=== PATIENT | male | born 1995 | race Caucasian/White ===

== ENCOUNTER 2018-09-11 19:38 | Emergency (ER) | payer OTHER, SELFPAY ==
[2018-09-11 19:40] VITALS: BP 143/78; PULSE 98; RESP 16; TEMP 36.9; O2SAT 96; BMI 20.2
--- NOTE | 2018-09-11 19:46 | ED.RN ---
CALLED JV FROM [facility] [facility] FOR THE [facility]. CARE TO COME TEST THIS PT
[2018-09-11] MEDS: Bupivacaine 0.5% PF 10 ML VIAL 5 ML INFILT (20:27)
[2018-09-11] MEDS: Cefazolin 1 GM/50 ML BAG IV (20:27)
[2018-09-11 20:32] LABS: Absolute Lymphocyte Count 2.23 X10^3/ul (0.83-4.51); Absolute Neutrophil Count 6.2 X10^3/uL (2.0-7.7); Basophil# 0.02 X10^3/uL; Basophil% 0.2 % (0-1); Eosinophil# 0.01 X10^3/uL; Eosinophils% 0.1 % (0-5); Hematocrit 41.3 % (40-54); Hemoglobin 14.3 g/dl (13.0-16.5); Lymphocyte # 2.23 X10^3/ul (4.0); Lymphocyte % 24.4 % (19-41); Mean Corp Hgb Conc 34.6 g/gl (32-36); Mean Corpuscular Hgb 32.6 pg (27.0-32.0); Mean Corpuscular Volume 94.1 fL (80-94); Mean Platelet Vol. 9.5 fl (6.2-12.0); Monocyte# 0.66 X10^3/uL; Monocyte% 7.2 % (0-10); Neutrophil # 6.18 X10^3/uL (2.7-7.7); Neutrophil % 67.8 % (47-70); Platelet Count 242 K/mm3 (150-450); RBC Distribution Width CV 12.1 % (11.6-14.6); RBC Distribution Width SD 41.3 fl (35.1-43.9); Red Blood Count 4.39 M/mm3 (4.6-6.2); White Blood Count 9.1 K/mm3 (4.4-11.0)
[2018-09-11 20:34] LABS: POSITIVE COUNT NO; POSITIVE DIFFERENTIAL NO; POSITIVE MORPHOLOGY NO
--- NOTE | 2018-09-11 20:35 | RAD_ITS ---
STUDY: X-RAY - RIGHT HAND, ATTENTION FIFTH FINGER REASON FOR EXAM: Male, 22 years old. Trauma TECHNIQUE: 3 view(s) of the finger were obtained. COMPARISON: None. FINDINGS: Markedly abnormal appearance of the tip of the fifth digit. Fractures of the fifth distal phalanx including a significantly displaced fracture of the tuft, and nondisplaced fracture of the base of the fifth distal phalanx. Soft tissues of the distal phalanx of the fifth digit. Soft tissues are displaced medially and the fracture tip of the distal phalanx is exposed. All these findings should be clinically evident. No other acute abnormalities. RAD/Finger(s) Min 2 Views IMPRESSION: Marked deformity of the distal fifth digit with fractures to the base of the fifth distal phalanx and markedly displaced open fracture through the tuft of the distal phalanx. Electronically Signed: Lauri Bowie MD at 20:59 EDT , Service support ,
--- NOTE | 2018-09-11 21:37 | ED.DCSUM_ITS ---
History of Present Illness Chief Complaint: Upper Extremity Injury Informant: Patient Onset: Today Narrative: Rcecg-[id number] male, crush injury right little finger at work. Stuck between conveyor belt. Tetanus within the last 5 years. No anticoagulation medicines. Deformity to the finger. No history of similar. Prior similar symptoms: No Past Medical History - Allergies and Home Meds Allergies/Adverse Reactions: Allergies No Known Allergies Allergy (Verified 09/11/18 19:42) Primary Care Physician: Care Physician,No Primary [Primary Care Provider] - Smoking Status: Never smoker Review of Systems General: Denies: Chills, Fever, Sweats Eyes: Denies: Visual changes - bilaterally, Diplopia ENT: Denies: Rhinorrhea, Sore throat Cardiovascular: Denies: Chest pain, Palpitations Respiratory: Denies: Dyspnea, Cough, Dyspnea on exertion Gastrointestinal: Denies: Abdominal pain, Nausea, Vomiting, Diarrhea, Melena, Hematochezia Genitourinary: Denies: Dysuria, Hematuria, Frequency Musculoskeletal: Reports: Arthralgias. Denies: Back pain, Extremity Pain Skin: Denies: Rash, Wounds Neurological: Reports: Parasthesia. Denies: Headache, Weakness, Numbness Physical Exam Vital Signs/Narrative: Vital Signs Temp Pulse Resp BP Pulse Ox 09/11/18 19:40 98.4 F 98 16 143/78 H 96 Inital Vital Signs reviewed: Yes General: Well nourished, Well developed, No Acute Distress Head: Normocephalic, Atraumatic Eyes: Perrl, EOMI ENT: Moist mucous membranes, No rhinorrhea Neck: Supple, Nontender Cardiovascular: Regular rate, Regular rhythm, No murmurs Respiratory: No distress, CTA bilaterally, Chest nontender Abdomen: Soft, Nontender, Nondistended, Normal bowel sounds Back: Nontender, Normal Inspection Extremities: - - Right upper extremity: Pinky exam notes partial amputation with deformities of the distal phalanx medially. Minimal bleeding. There was bone exposure. No joint involvement. 3 cm laceration involvement stellate with crest tissue. Skin: Normal color, No rash Neurological: Alert, Oriented x3, Cranial nerves II-XII grossly intact, Normal Strength, Normal Sensation Psychological: Normal affect, Normal Mood Diagnostic/Tx/Re-eval Right small finger: Fracture displacement distal phalanx with nondisplaced proximal distal phalanx fracture. - Medical Decision Making Patient exam concerns were open fracture, IVs placed given Ancef. CBC is normal. Digital block was performed after evaluation. X-ray confirms fracture displacement distal phalanx. Thoroughly cleansed and wash in Betadine mix with water. There was bone exposure initially, partial amputation distal soft tissue. This was replaced over the bone, sutured in place. There was no nailbed involvement, nail root was pushed back in. Discussed with Dr. Barnett at 2127, will place the patient with doxycycline, short prescription for [place]. Splinting and dressing placed by nursing. He will be seen in the office tomorrow. Procedures - Lacerations No standard instances Length: 36 in Shape: Stellate Prep: Sterile Conditions, Betadine Laceration repair: Digital block Irrigated (ml): 999 Number of Sutures/Ann: 5 Suture Information: Simple, 5-0 ED Disposition - Plan for ED Patient: Disposition: Home or Assisted Living Diagnosis: Open fracture of phalanx of right little finger Instructions: ED Fx Finger Open Prescriptions: Hydrocodone Bitart/Apap 5-325 [[place] 5MG-325MG] 1 tablet PO Q6H PRN PRN 3 Days #12 tablet PRN Reason: Pain Doxycycline 100 mg PO BID #20 capsule Referrals: Care Physician,No Primary [Primary Care Provider] - Layo Barnett MD [STAFF PHYSICIAN] - 1 Day
[2018-09-11] MEDS: HYDROcodone Bitartrate/Apap 5/325 Tablet PO (21:46)
== END 2018-09-11 21:51 | disposition home or self-care (01) ==
PROVIDERS: Emergency Provider Emergency Medicine
DX: S62.636B Displaced fracture of distal phalanx of right little finger, initial encounter for open fracture (principal); W23.1XXA Caught, crushed, jammed, or pinched between stationary objects, initial encounter; Y93.9 Activity, unspecified; Y92.9 Unspecified place or not applicable; Y99.0 Civilian activity done for income or pay
CPT/HCPCS: 12001; 73140; 85025; 96365; 99285; J7050; A4216

== ENCOUNTER 2018-09-13 07:09 | Day surgery (SDC) | payer OTHER, SELFPAY ==
[2018-09-12 15:20] VITALS: BMI 20.2
[2018-09-13 07:58] VITALS: BP 111/71; PULSE 63; RESP 18; TEMP 37.3; O2SAT 99; BMI 20.8
[2018-09-13] MEDS: Vancomycin IV 1,000 MG/200 ML BAG 200 MG IV (09:12)
--- NOTE | 2018-09-13 09:17 | HP.PCM_ITS ---
History and Physical Date of Admission: 09/13/18 HISTORY OF PRESENT ILLNESS 22 year old man presents with a crush injury right small finger that he sustained at work on 09/11/18 when his finger got stuck in a conveyor belt. He went to the ED for evaluation. X-ray showed a displaced open fracture right small finger through the tuft of the distal phalanx and a nondisplaced fracture of the base. There were lacerations on the dorsum of the finger near the eponychial fold and on the volar side of the finger at the DIP joint crease. The wounds were cleansed in the ED and suture repaired. There was enough soft tissue to cover the exposed bone. He has an associated subungual hematoma and nail bed injury. In the ED, the patient was able to flex and extend the finger at the DIP joint. He was given Ancef IV and was sent home on Doxycycline. The finger was splinted. Patient is right hand dominant. He presents today for further evaluation and treatment. PAST MEDICAL HISTORY Ulcer PAST SURGICAL HISTORY None. ALLERGIES No Known Allergies MEDICATIONS Doxycycline Hydrocodone Bitart/Apap 5-325 [[place] 5MG-325MG] FAMILY HISTORY Other - Arthritis, Cervical cancer, History of blood clots SOCIAL HISTORY Smoking Status: Light Smoker (<10/day) alcohol intake: current details: BEER ONCE IN A WHILE substance use type: does not use REVIEW OF SYSTEMS General - Denies fever, fatigue, and weight loss. Eyes - Denies cataracts and glaucoma. ENT - Denies nasal congestion and sore throat. Endocrine - Denies excessive thirst and urination. Skin - Denies suspicious lesions and skin cancer. Musculoskeletal - Denies joint pain, joint stiffness, weakness of muscles and joints, and arthritis. Has back pain. Has an open displaced fracture distal phalanx right small finger with subungual hematoma and nail bed injury. Neuro - Denies headaches. Cardiovascular - Denies chest pain, fatigue, and shortness of breath with exertion. Psych - Denies anxiety and depression. Respiratory - Denies chronic cough and shortness of breath. Gastrointestinal - Denies nausea, vomiting, diarrhea, and constipation. Hematologic - Denies abnormal bruising and bleeding. Genitourinary - Denies hematuria and urinary frequency. PHYSICAL EXAMINATION General - Alert and Oriented HEENT - PERRL. EOMI. Throat is clear. Neck - Supple and nontender. No cervical adenopathy. Lungs - Clear to auscultation. Heart - Regular rate and rhythm. Abdomen - Soft and nondistended. Extremities - FROM except for right small finger where he sustained a crush injury and associated open displaced fracture distal phalanx and nail bed inj ury. There is a subungual hematoma present. There is a laceration that is suture repaired on the dorsum of the right small finger near the eponychial fold. There is a laceration that is suture repaired on the volar side of the right small finger at the DIP joint crease. He is able to flex and extend his finger with some limitation secondary to pain and swelling. No axillary adenopathy. Radial pulses are palpable. Other fingers are warm with good capillary refill. Hard to assess capillary refill right small finger because of presence of subungual hematoma. The finger feels warm. Tip of small finger has decreased sensation to pin prick. Neuro - CN II-XII grossly intact. Psych - Normal mood and affect. ASSESSMENT 1. Open displaced fracture distal tuft of distal phalanx right small finger. 2. Subungual hematoma right small finger. 3. Nail bed injury right small finger. 4. Crush injury right small finger. 5. Possible tendon injury. PLAN Continue the tip splint to help minimize pain when the finger tip is bumped. Continue Doxycycline since there is increased risk of osteomyelitis. Recommend operative intervention to drain the subungual hematoma as an undrained hematoma increases risk of infection. Will proceed with a partial ostectomy to evaluate for osteomyelitis. Soft tissue and bone will be sent to Pathology for analysis and to Microbiology for culture. A positive culture may necessitate antibiotic modification. Will evaluate the nail bed injury and repair it. If there is too much damage to the nail bed then a nail bed graft from another finger or a toe could be done. If greater than 50% of the nail bed is damaged, a better option would be excision of the nail bed complex and provide soft tissue coverage over the exposed bone with a two stage cross finger flap and skin graft. The second stage would occur in 3 weeks and entail division and inset of the flap. The donor site may need to be skin grafted. Anticipate some stiffness after the division of the flap and would set him up with OT for range of motion exercises, strengthening, and edema management. He is able to flex and extend his finger at the DIP joint. However due to the placement of the lacerations on the dorsum of the finger near the eponychial fold (zone 1) and the volar surface of the finger at the DIP joint crease (zone 1), at the time of the surgery, will evaluate both the flexor and extensor tendons for injury. If injured, they will be repaired. The surgery has been approved by [facility]. It is scheduled for tomorrow 09/13/18. Surgery will be done under general anesthesia as an outpatient with a possible surgical observation overnight stay in the hospital. Followup after the surgery. He will need pain medication and antibiotics after surgery. 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 Anticipate these restrictions until October 08, 2018 (tentative). Patient was informed of the risks and complications of the procedure including alternatives to surgery. These were discussed with the patient personally. Patient voices understanding and wishes to proceed. Some of the risks and complications were included in a form from the [employer]. Some of the risks and complications that were discussed included but were not inclusive of failure to diagnose including symptom relief, pain, infection, numbness, stiffness, loss of digit, RSD (CRPS), need for further surgery, contracture, and wound healing problems.
--- NOTE | 2018-09-13 10:20 | TISS_PTH ---
PATIENT: DIANA NEWSOME LOC: [facility] U#:[id number] AGE/SX: 22/M ROOM: RE09/13/[address]: Dr. Layo Barnett MD : 1995 BED: DIS: 09/13/2018 SPEC #: [id number] RECD: 09/13/18 15:17 STATUS: [place]YS[place] REAnoop #: [id number] TAMARA: 09/13/18 10:[address]: Layo Barnett DEPT: SURGICAL PATHOLOGY RECD BY: Robert Parra ENTERED: 09/14/18 08:57 SP TYPE: Tissue Bx OTHR DR: No Primary Care Phys Tissues: A - TISSUE SURGICALLY REMOVED B - TISSUE SURGICALLY REMOVED Procedures: Surgery Specimen Level III HEADER OPERATION: Small finger, drainage, partial ostectomy, distal phalanges PRE-OP DIAGNOSIS: Open displaced facture distal tuft of distal phalanx right small finger; subungual hematoma right small finger; nailbed injury, crush injury small finger; possible tendon injury TISSUE SUBMITTED: A. Crush injury with open fracture right small finger, B. Soft tissue small right finger MICROSCOPIC DIAGNOSIS A. Crush injury with open fracture right small finger: Fragments of fibroconnective tissue, fibroadipose tissue and bone, clinically crush injury. B. Soft tissue small right finger: Fragments of superficial squamous epithelium, dense fibroconnective tissue and bone, clinically crush injury. JAZLYN:tyrell 09/17/18 MICROSCOPIC DESCRIPTION Slides are reviewed. GROSS DESCRIPTION A - Received in fixative is one container labeled with the patient's name and designated crush injury with open fracture right small finger. The specimen consists of three variable sized pieces of hemorrhagic soft tissue that in aggregate measure 0.8 x 0.5 x 0.2 cm. The specimen is totally submitted in one cassette. B - Received in fixative is one container labeled with the patient's name and designated soft tissue small right finger. The specimen consists of multiple irregular fragments of garzon hemorrhagic soft tissue that in aggregate measure 1 x 0.5 x 0.2 cm. The specimen is totally submitted in one cassette. / JAZLYN:tyrell 09/14/18 TC:5 CPT: 93976 x2
[2018-09-13] MEDS: Mupirocin Ointment 22gm Tube 1 APPLIC (12:08)
--- NOTE | 2018-09-13 12:25 | OP.PCM_ITS ---
Report of Operation Date of Procedure: 09/13/18 Pre-Operative Diagnosis: 1. Open displaced fracture distal tuft of distal phalanx right small finger. 2. Subungual hematoma right small finger. 3. Nail bed injury right small finger. 4. Crush injury right small finger. 5. Possible tendon injury. Post-Operative Diagnosis: 1. Open displaced fracture distal tuft of distal phalanx right small finger. 2. Subungual hematoma right small finger. 3. Nail bed injury right small finger. 4. Crush injury right small finger. Surgery/Procedure Performed:: 1. Drainage subungual hematoma right small finger. 2. Partial ostectomy distal phalanx for osteomyelitis. 3. Complex repair stellate nail bed injury. Description of Surgical Findings:: 22 year old man presents with a crush injury right small finger that he sustained at work on 09/11/18 when his finger got stuck in a conveyor belt. He went to the ED for evaluation. X-ray showed a displaced open fracture right small finger through the tuft of the distal phalanx and a nondisplaced fracture of the base. There were lacerations on the dorsum of the finger near the eponychial fold and on the volar side of the finger at the DIP joint crease. The wounds were cleansed in the ED and suture repaired. There was enough soft tissue to cover the exposed bone. He has an associated subungual hematoma and nail bed injury. In the ED, the patient was able to flex and extend the finger at the DIP joint. He was given Ancef IV and was sent home on Doxycycline. The finger was splinted. Patient is right hand dominant. Patient was informed of the risks and complications of the procedure including alternatives to surgery. These were discussed with the patient personally. Patient voices understanding and wishes to proceed. Some of the risks and complications that were discussed included but were not inclusive of failure to diagnose including symptom relief, pain, infection, numbness, stiffness, loss of digit, RSD (CRPS), need for further surgery, contracture, and wound healing problems. Total tourniquet time - 74 minutes. enterprise application analyst: None Type of Anesthesia:: General Specimen's removed: 1. Right small finger tip soft tissue to Pathology and Microbiology. 2. Right small finger tip bone to Pathology and Microbiology. Drains: None. Estimated Blood Loss (mL): 2 ml. Description of Procedure: Patient was taken to OR in supine position and was placed under general anesthesia. The right upper extremity was prepped and draped in the usual fashion. A tourniquet was placed. SCD's were placed for DVT prophylaxis. Perioperative antibiotics were given intravenously. The right upper extremity was elevated and was wrapped with an Esmarch bandage as the tourniquet was elevated to 250 mmHg. Using xylocaine with epinephrine, a digital metacarpal block at the base of the right small finger was infiltrated for postop pain relief. Under loupe magnification, I removed the sutures on the dorsum of the finger and the volar side of the finger. The distal tip skin flap was floppy with blood supply based ulnarly. I removed the nail plate with an elevator. There was a congealed hematoma present that extended through the stellate nail bed injury and involved the distal phalanx. The hematoma was drained and the congealed portion of the hematoma was excised and debrided. Using an elevator, I elevated the remaining nail bed off the distal phalanx. Some loose pieces of bone were excised and debrided. Using a rongeur, I excised the distal portion of the distal phalanx to evaluate for osteomyelitis. A rasp was used to smooth out the bony edge. The stellate nail bed injury was swollen with presence of ex udate which was excised and debrided. From the pressure of the subungual hematoma, there was some loss of nail bed and the bone was exposed. I shortened the nail bed a little bit to minimize a floppy finger tip. I wanted the soft tissue to be close to the bone to minimize this floppiness. By shortening the nail bed a little bit, I was able to repair the nail bed without having to resort to a nail bed graft. This complex nail bed repair was done with 5-0 Vicryl simple interrupted sutures. Since I was able to repair the nail bed, a cross finger flap will not be necessary at this time. I visualized the base of the distal phalanx on the volar side and the insertion of the flexor tendon was intact. For the extensor tendon, I extended the dorsal laceration proximally on the radial side and dissected down to the extensor tendon. The insertion of the extensor tendon was intact. The wound was irrigated with saline. Some fat necrosis that was present from the crush injury was excised and debrided. I then closed the skin lacerations with 5-0 Nylon simple interrupted sutures. I cleaned off any residual blood and debris from the nail plate and placed the nail plate back on the finger and underneath the eponychial fold. The nail plate was secured with 5-0 Nylon simple interrupted sutures. Half the soft tissue and half the bone was sent to Pathology for analysis to rule out car cinoma and to evaluate for osteomyelitis. Half the soft tissue and half the bone was sent to Microbiology for culture. A positive culture will necessitate antibiotic therapy. The tourniquet was released after 74 minutes. Hemostasis was obtained with gentle pressure and elevation. Antibiotic ointment was applied to the finger tip followed by Xeroform gauze and 2x2 gauze followed by 2 inch Dona wrap. A new alumafoam splint will be given to the patient to help with protecting the finger tip when bumped. With a bulky surgical dressing at present, he won't need the splint until after the first dressing change in the office. Patient tolerated the procedure well and was sent to PACU in satisfactory condition. Patient will be sent home on antibiotics and pain medication. He will keep his right hand elevated during the initial postop period. He will wear a plastic bag over his right hand when showering. Patient will followup in a week for a wound check and for discussion of the pathology report and for discussion of the Microbiology report. Will remove the sutures in 2-3 weeks. Depending on his degree of stiffness postop, may need OT for range of motion exercises, strengthening, and edema management. Will decide at his first postop visit about when to return to work with restrictions such as one handed work, office work, and no machines. Grafts/Implants Used: None. - Complications None. - Admit VTE Documentation VTE Present on Admission: No VTE Mechan Device Prophylaxis: SCD's VTE Pharm Prophylaxis ordered?: No Code Visit Surgery Charges CPT - 61524 ICD-10 - S62.606B, S60.151A, S69.91xA, S67.196A 11089 S62.606B, S60.151A, S69.91xA, S67.196A 61836 S62.606B, S69.91xA, S60.151A, S67.196A
[2018-09-13 12:28] VITALS: BP 110/70; BP 111/71; PULSE 74; RESP 14; TEMP 36.6; O2SAT 100
--- NOTE | 2018-09-13 12:30 | PCM.DC ---
You will use the following diet at home:: No restrictions Discharge Activity: May not drive while taking narcotic pain medications., May Shower - wear plastic bag over right hand when showering., - - keep right hand elevated. no lifting with right hand. May shower in (days): 1 - wear plastic bag over right hand when showering. May resume sexual activity in: No Restrictions Weight Bearing Status: Weight bearing as tolerated Lifting Restrictions: no lifting with right hand. Keep extremity elevated above heart level: Right Arm Call your doctor if your incision/area has: Continuous Slow Oozing, Sudden Increased Bleeding, Increased Pain/ Swelling, Increased Redness, Foul Smelling Discharge, Swelling at the incision site Call your doctor if you observe: Fever of 101 or Higher, Coldness, Increased Pain, Shortness of breath, Chest pain, Calf discomfort, Uncontrolled pain Suture Line Care: - - after dressing removed in the office, apply antibiotic ointment to suture line daily. Change Dressing in (Days):: 7 - will change dressing in the office. Cleanse incision/area with: - - wear plastic bag over right hand when showering. Allergies/Adverse Reactions: Allergies No Known Allergies Allergy (Verified 09/12/18 15:20) Medications to take at Discharge Hydrocodone Bitart/Apap 5-325 [[place] 5/325] 1 tab PO Q6H PRN PRN 3 Days #12 tab 09/11/18 Doxycycline 100 mg PO BID #60 cap 09/13/18 Oxycodone HCl/Acetaminophen [Percocet 5/325] 1 - 2 tab PO 4X/DAY PRN PRN 7 Days #50 tab 09/13/18 The following prescriptions were given: Oxycodone HCl/Acetaminophen [Percocet 5/325] 1 - 2 tab PO 4X/DAY PRN PRN 7 Days #50 tab PRN Reason: Pain Doxycycline 100 mg PO BID #60 cap Primary Care Physician: Care Physician,No Primary [Primary Care Provider] - Test Results: Test results from this visit will be discussed in further detail at your follow-up appointment, if applicable. Please Follow Up With: Layo Barnett MD When: one week. call [phone] for appt. Proposed Discharge Date: 09/13/18
--- NOTE | 2018-09-13 12:33 | DCINST_ITS ---
You will use the following diet at home:: No restrictions Discharge Activity: May not drive while taking narcotic pain medications., May Shower - wear plastic bag over right hand when showering., - - keep right hand elevated. no lifting with right hand. May shower in (days): 1 - wear plastic bag over right hand when showering. May resume sexual activity in: No Restrictions Weight Bearing Status: Weight bearing as tolerated Lifting Restrictions: no lifting with right hand. Keep extremity elevated above heart level: Right Arm Call your doctor if your incision/area has: Continuous Slow Oozing, Sudden Increased Bleeding, Increased Pain/ Swelling, Increased Redness, Foul Smelling Discharge, Swelling at the incision site Call your doctor if you observe: Fever of 101 or Higher, Coldness, Increased Pain, Shortness of breath, Chest pain, Calf discomfort, Uncontrolled pain Suture Line Care: - - after dressing removed in the office, apply antibiotic ointment to suture line daily. Change Dressing in (Days):: 7 - will change dressing in the office. Cleanse incision/area with: - - wear plastic bag over right hand when showering. Allergies/Adverse Reactions: Allergies No Known Allergies Allergy (Verified 09/12/18 15:20) Medications to take at Discharge Hydrocodone Bitart/Apap 5-325 [[place] 5/325] 1 tab PO Q6H PRN PRN 3 Days #12 tab 09/11/18 Doxycycline 100 mg PO BID #60 cap 09/13/18 Oxycodone HCl/Acetaminophen [Percocet 5/325] 1 - 2 tab PO 4X/DAY PRN PRN 7 Days #50 tab 09/13/18 The following prescriptions were given: Oxycodone HCl/Acetaminophen [Percocet 5/325] 1 - 2 tab PO 4X/DAY PRN PRN 7 Days #50 tab PRN Reason: Pain Doxycycline 100 mg PO BID #60 cap Primary Care Physician: Care Physician,No Primary [Primary Care Provider] - Test Results: Test results from this visit will be discussed in further detail at your follow- up appointment, if applicable. Please Follow Up With: Layo Barnett MD When: one week. call [phone] for appt. Proposed Discharge Date: 09/13/18
[2018-09-13 12:45] VITALS: BP 101/54; BP 111/71; PULSE 81; RESP 16; O2SAT 99
[2018-09-13 13:03] VITALS: BP 106/61; BP 111/71; PULSE 80; RESP 18; TEMP 36.6; O2SAT 100
[2018-09-13 13:30] VITALS: BP 111/71
== END 2018-09-13 13:41 | disposition home or self-care (01) ==
LOC: SDC 07:12 → AC 08:54
PROVIDERS: Referring Provider Surgery; Visit Provider Surgery
PROC: (CPT 15574; principal; 2018-09-13 10:05)
DX: S67.196A Crushing injury of right little finger, initial encounter (principal); S62.636B Displaced fracture of distal phalanx of right little finger, initial encounter for open fracture; S60.151A Contusion of right little finger with damage to nail, initial encounter; W23.0XXA Caught, crushed, jammed, or pinched between moving objects, initial encounter; Y93.9 Activity, unspecified; Y92.9 Unspecified place or not applicable; Y99.0 Civilian activity done for income or pay; F17.200 Nicotine dependence, unspecified, uncomplicated
CPT/HCPCS: 00400; 11740; 11760; 26236; 87070; 87075; 87077; 87102; 87186; 87205; 87206; 88304; 88305; J7120; A4216; J2405

== ENCOUNTER 2018-10-02 12:05 | Day surgery (SDC) | payer OTHER, SELFPAY ==
[2018-10-01 15:12] VITALS: BMI 20.8
--- NOTE | 2018-10-02 09:44 | PCM.HP.BLA ---
History and Physical Date of Admission: 10/02/18 Date of Admission: 09/13/18 HISTORY OF PRESENT ILLNESS 22 year old man presents with a crush injury right small finger that he sustained at work on 09/11/18 when his finger got stuck in a conveyor belt. He went to the ED for evaluation. X-ray showed a displaced open fracture right small finger through the tuft of the distal phalanx and a nondisplaced fracture of the base. There were lacerations on the dorsum of the finger near the eponychial fold and on the volar side of the finger at the DIP joint crease. The wounds were cleansed in the ED and suture repaired. There was enough soft tissue to cover the exposed bone. He has an associated subungual hematoma and nail bed injury. In the ED, the patient was able to flex and extend the finger at the DIP joint. He was given Ancef IV and was sent home on Doxycycline. The finger was splinted. Patient is right hand dominant. He presents today for further evaluation and treatment. PAST MEDICAL HISTORY Ulcer PAST SURGICAL HISTORY None. ALLERGIES No Known Allergies MEDICATIONS Doxycycline Hydrocodone Bitart/Apap 5-325 [[place] 5MG-325MG] FAMILY HISTORY Other - Arthritis, Cervical cancer, History of blood clots SOCIAL HISTORY Smoking Status: Light Smoker (<10/day) alcohol intake: current details: BEER ONCE IN A WHILE substance use type: does not use REVIEW OF SYSTEMS General - Denies fever, fatigue, and weight loss. Eyes - Denies cataracts and glaucoma. ENT - Denies nasal congestion and sore throat. Endocrine - Denies excessive thirst and urination. Skin - Denies suspicious lesions and skin cancer. Musculoskeletal - Denies joint pain, joint stiffness, weakness of muscles and joints, and arthritis. Has back pain. Has an open displaced fracture distal phalanx right small finger with subungual hematoma and nail bed injury. Neuro - Denies headaches. Cardiovascular - Denies chest pain, fatigue, and shortness of breath with exertion. Psych - Denies anxiety and depression. Respiratory - Denies chronic cough and shortness of breath. Gastrointestinal - Denies nausea, vomiting, diarrhea, and constipation. Hematologic - Denies abnormal bruising and bleeding. Genitourinary - Denies hematuria and urinary frequency. PHYSICAL EXAMINATION General - Alert and Oriented HEENT - PERRL. EOMI. Throat is clear. Neck - Supple and nontender. No cervical adenopathy. Lungs - Clear to auscultation. Heart - Regular rate and rhythm. Abdomen - Soft and nondistended. Extremities - FROM except for right small finger where he sustained a crush injury and associated open displaced fracture distal phalanx and nail bed injury. There is a subungual hematoma present. There is a laceration that is suture repaired on the dorsum of the right small finger near the eponychial fold. There is a laceration that is suture repaired on the volar side of the right small finger at the DIP joint crease. He is able to flex and extend his finger with some limitation secondary to pain and swelling. No axillary adenopathy. Radial pulses are palpable. Other fingers are warm with good capillary refill. Hard to assess capillary refill right small finger because of presence of subungual hematoma. The finger feels warm. Tip of small finger has decreased sensation to pin prick. Neuro - CN II-XII grossly intact. Psych - Normal mood and affect. ASSESSMENT 1. Open displaced fracture distal tuft of distal phalanx right small finger. 2. Subungual hematoma right small finger. 3. Nail bed injury right small finger. 4. Crush injury right small finger. 5. Possible tendon injury. PLAN Continue the tip splint to help minimize pain when the finger tip is bumped. Continue Doxycycline since there is increased risk of osteomyelitis. Recommend operative intervention to drain the subungual hematoma as an undrained hematoma increases risk of infection. Will proceed with a partial ostectomy to evaluate for osteomyelitis. Soft tissue and bone will be sent to Pathology for analysis and to Microbiology for culture. A positive culture may necessitate antibiotic modification. Will evaluate the nail bed injury and repair it. If there is too much damage to the nail bed then a nail bed graft from another finger or a toe could be done. If greater than 50% of the nail bed is damaged, a better option would be excision of the nail bed complex and provide soft tissue coverage over the exposed bone with a two stage cross finger flap and skin graft. The second stage would occur in 3 weeks and entail division and inset of the flap. The donor site may need to be skin grafted. Anticipate some stiffness after the division of the flap and would set him up with OT for range of motion exercises, strengthening, and edema management. He is able to flex and extend his finger at the DIP joint. However due to the placement of the lacerations on the dorsum of the finger near the eponychial fold (zone 1) and the volar surface of the finger at the DIP joint crease (zone 1), at the time of the surgery, will evaluate both the flexor and extensor tendons for injury. If injured, they will be repaired. The surgery has been approved by [facility]. It is scheduled for tomorrow 09/13/18. Surgery will be done under general anesthesia as an outpatient with a possible surgical observation overnight stay in the hospital. Followup after the surgery. He will need pain medication and antibiotics after surgery. 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 Anticipate these restrictions until October 08, 2018 (tentative). Patient was informed of the risks and complications of the procedure including alternatives to surgery. These were discussed with the patient personally. Patient voices understanding and wishes to proceed. Some of the risks and complications were included in a form from the [employer]. Some of the risks and complications that were discussed included but were not inclusive of failure to diagnose including symptom relief, pain, infection, numbness, stiffness, loss of digit, RSD (CRPS), need for further surgery, contracture, and wound healing problems.
[2018-10-02 12:47] VITALS: BP 113/62; PULSE 79; RESP 16; TEMP 36.8; O2SAT 98
[2018-10-02] MEDS: Vancomycin IV 1,000 MG/200 ML BAG 200 MG IV (13:30)
--- NOTE | 2018-10-02 14:30 | AMP_PTH ---
PATIENT: DIANA NEWSOME [place] [facility] [id number] AGE/SX: 23/M ROOM: RE10/02/[address]: Dr. Layo Barnett MD : 1995 BED: DIS: 10/02/2018 SPEC #: [id number] RECD: 10/02/18 16:45 STATUS: BRYSON REAnoop #: [id number] TAMARA: 10/02/18 14:[address]: Layo Barnett DEPT: SURGICAL PATHOLOGY RECD BY: Robert Parra ENTERED: 10/03/18 10:01 SP TYPE: Amputation OTHR DR: Nereida Primary Care Phys Tissues: A - Finger, NOS B - Bone of hand, NOS Procedures: Decalcification bone/plaque Surgery Specimen Level IV HEADER OPERATION: Revision amputation small finger on right hand PRE-OP DIAGNOSIS: Open displaced fracture distal tuft of distal phalanx right small finger; subungual hematoma right small finger; nailbed injury right small finger; crush injury right small finger; possible tendon injury TISSUE SUBMITTED: A. Amputation stump right small finger soft tissue, B. Amputation stump right small finger bone MICROSCOPIC DIAGNOSIS A. Right small finger, amputation: Skin and soft tissue with ulceration and associated acute inflammation and granulation. Underlying bone with acute osteomyelitis. B. Amputation stump right small finger bone, biopsy: Bone with reparative and reactive change. No evidence of osteomyelitis. AM:tyrell 10/10/18 MICROSCOPIC DESCRIPTION Slides are reviewed. GROSS DESCRIPTION A - Received in fixative is one container labeled with the patient's name and designated amputation stump right small finger soft tissue. The specimen consists of grayish-white amputated stump measuring 2.8 x 2.2 x 1.2 cm. The skin shows focal superficial sloughing. A portion of the possible nail tissue is also identified. Multiple black sutures are present. The specimen is serially sectioned and submitted in toto in three cassettes after decalcification. B - Received in fixative is one container labeled with the patient's name and designated amputation stump right small finger bone. The specimen consists of a grayish-white fragment of bone measuring 0.8 x 0.4 x 0.3 cm. The specimen is totally submitted in one cassette after decalcification. FA:tyrell 10/04/18 TC:2 CPT: 12442 x2, 85405 x2
[2018-10-02] MEDS: Mupirocin Ointment 22gm Tube 1 APPLIC (16:35)
--- NOTE | 2018-10-02 16:41 | OP.PCM_ITS ---
Report of Operation Date of Procedure: 10/02/18 Pre-Operative Diagnosis: 1. Open displaced fracture distal tuft of distal phalanx right small finger. 2. Subungual hematoma right small finger. 3. Nail bed injury right small finger. 4. Crush injury right small finger with compromised tip. Post-Operative Diagnosis: Same. Surgery/Procedure Performed:: Revision amputation right small finger thorugh middle phalanx. Description of Surgical Findings:: The patient had recent surgery 09/14/18 where he underwent debridement of open fracture distal phalanx and repair of nail bed injury and drainage of subungual hematoma after sustaining a crush injury at work. Postoperatively he developed compromise of his right small finger tip with nonviable tissue and increasing pain. Operative cultures showed Enterobacter and he was placed on Levaquin. Pathology showed crushing changes and no osteomyelitis. He presents today for revision of his crush injury amputation right small finger tip. Patient was informed of the risks and complications of the procedure including alternatives to surgery. These were discussed with the patient personally. Patient voices understanding and wishes to proceed. Some of the risks and complications were included in a form from the [employer]. Some of the risks and complications that were discussed included but were not inclusive of failure to diagnose including symptom relief, pain, infection, numbness, stiffness, loss of digit, RSD (CRPS), need for further surgery, contracture, and wound healing problems. Encouraged patient to stop smoking as it may have deleterious effects on wound healing. Surgery will be under general anesthesia on an outpatient basis under tourniquet control. Total tourniquet time - 26 minutes. nuclear spectroscopist: None Type of Anesthesia:: General Specimen's removed: 1. Amputation stump soft tissue right small finger to Pathology and Microbiology. 2. Amputation stump bone right small finger to Pathology and Microbiology. Drains: None. Estimated Blood Loss (mL): 2 ml. Description of Procedure: Patient was taken to OR in supine position and was placed under general anesthesia. The right hand was prepped and draped in the usual fashion. SCD's were placed for DVT prophylaxis. Perioperative antibiotics were given intravenously. Using xylocaine with epinephrine, the digital metacarpal block was infiltrated for postoperative pain relief. After waiting 5 minutes for the anesthetic to take effect, a digital tourniquet was applied. Incisions were made dorsally and volarly as I created dorsal and volar skin flaps at the level of the middle phalanx. Markings had been made just proximal to the crush injury damaged tissue distally. Dissection was carried down through the tendons to the bone. An elevator was used to separate the soft tissue from the bone. An oscillating saw was used to revise the amputation through the middle phalanx. A rasp was used to smooth out the bony edges. Half the bone and half the soft tissue was sent to Pathology for analysis to rule out carcinoma and to evaluate for osteomyelitis. Half the bone and half the soft tissue was sent to Microbiology for culture. A positive culture may necessitate antibiotic modification. I then dissected out the radial and ulnar digital nerves and placed them on stretch and excised. This allowed proximal retraction of the digital nerves to minimize neuroma formation. The wound was irrigated with saline. The amputation stump was then closed in a layered fashion with 5-0 Monocryl interrupted sutures for the deep dermis and subcutaneous tissue. The skin was approximated with 5-0 Nylon simple interrupted sutures. Prior to wound closure, the tourniquet was released after 26 minutes. No vascular compromise was noted on the skin. Hemostasis was obtained with electrocautery. Antibiotic ointment was applied to the suture line followed by Xeroform gauze followed by 2x2 gauze and 2 inch Dona wrap. Patient tolerated the procedure well and was sent to PACU in satisfactory condition. Patient will be sent home on antibiotics and pain medication. Patient will followup in a week for a wound check and for discussion of the pathology report and for discussion of the microbiology report. A positive culture may necessitate antibiotic modification. The sutures will be removed in 2-3 weeks. Grafts/Implants Used: None. - Complications None. - Admit VTE Documentation VTE Present on Admission: No VTE Mechan Device Prophylaxis: SCD's VTE Pharm Prophylaxis ordered?: No Code Visit Surgery Charges CPT - 91129 ICD-10 - S62.636B, S60.151A, S67.196A, S69.91xA, F17.200
[2018-10-02 16:46] VITALS: BP 113/62; BP 97/75; PULSE 89; RESP 18; TEMP 37.1; O2SAT 100
--- NOTE | 2018-10-02 16:50 | DCINST_ITS ---
You will use the following diet at home:: No restrictions Discharge Activity: May not drive while taking narcotic pain medications., May Shower - wear plastic bag over right hand when showering., - - elevate right hand. no heavy lifting. May shower in (days): 1 - wear plastic bag over right hand when showering. May resume sexual activity in: No Restrictions Weight Bearing Status: Weight bearing as tolerated Lifting Restrictions: 10 lbs. Keep extremity elevated above heart level: Right Arm Call your doctor if your incision/area has: Continuous Slow Oozing, Sudden Increased Bleeding, Increased Pain/ Swelling, Increased Redness, Foul Smelling Discharge, Swelling at the incision site Call your doctor if you observe: Fever of 101 or Higher, Coldness, Increased Pain, Shortness of breath, Chest pain, Calf discomfort, Uncontrolled pain Suture Line Care: - - after the dressing removed, apply antibiotic ointment to suture line daily. Cleanse incision/area with: - - wear plastic bag over right hand when showering. Allergies/Adverse Reactions: Allergies No Known Allergies Allergy (Verified 10/01/18 15:12) Medications to take at Discharge Oxycodone HCl/Acetaminophen [Percocet 5/325] 1 tab PO Q4H PRN PRN 7 Days #40 tab 10/02/18 levoFLOXacin tablet [Levaquin tablet] 750 mg PO DAILY #14 tab 10/02/18 The following prescriptions were given: levoFLOXacin tablet [Levaquin tablet] 750 mg PO DAILY #14 tab Prescription Printed Oxycodone HCl/Acetaminophen [Percocet 5/325] 1 tab PO Q4H PRN PRN 7 Days #40 tab PRN Reason: Pain Prescription Printed Primary Care Physician: Care Physician,No Primary [Primary Care Provider] - Test Results: Test results from this visit will be discussed in further detail at your follow- up appointment, if applicable. Please Follow Up With: Lyao Barnett MD When: one week. call [phone] for appt. Proposed Discharge Date: 10/02/18
[2018-10-02 17:00] VITALS: BP 104/65; BP 113/62; PULSE 85; RESP 16; O2SAT 97
[2018-10-02 17:10] VITALS: BP 100/56; BP 113/62; PULSE 94; RESP 18; TEMP 36.8; O2SAT 97
[2018-10-02] MEDS: Acetaminophen 325 MG Tablet PO (17:29)
[2018-10-02] MEDS: oxyCODONE 5 MG Tablet PO (17:29)
[2018-10-02 17:40] VITALS: BP 113/62; BP 118/68; PULSE 83; RESP 16; TEMP 37.2; O2SAT 99
== END 2018-10-02 17:50 | disposition home or self-care (01) ==
LOC: SDC 12:07 → AC 12:07
PROVIDERS: Referring Provider Surgery; Visit Provider Surgery
PROC: (CPT 26951; principal; 2018-10-02 14:15)
DX: S67.196A Crushing injury of right little finger, initial encounter (principal); S62.636B Displaced fracture of distal phalanx of right little finger, initial encounter for open fracture; S60.151A Contusion of right little finger with damage to nail, initial encounter; W23.0XXA Caught, crushed, jammed, or pinched between moving objects, initial encounter; Y93.9 Activity, unspecified; Y92.9 Unspecified place or not applicable; Y99.0 Civilian activity done for income or pay; M86.141 Other acute osteomyelitis, right hand; B96.89 Other specified bacterial agents as the cause of diseases classified elsewhere; F17.210 Nicotine dependence, cigarettes, uncomplicated
CPT/HCPCS: 26951; 87070; 87075; 87077; 87102; 87186; 87205; 87206; 88304; 88305; 88311; J7120; J2405

== ENCOUNTER 2018-12-13 10:30 | Outpatient (RCR) | payer OTHER, SELFPAY ==
--- NOTE | 2018-11-19 09:38 | HP.OTEVAL ---
Patient's Visit Information DIANA NEWSOME is a 23 year old M, referred to Occupational Therapy by Layo Barnett MD, with a diagnosis of right LF crush injury with right LF tip amputation. Date of Evaluation: 11/19/18 Occupational Therapist: Keiry Chaudhry, MARIANA/Fletcher, CHT - Subjective Subjective: This 23 year old male was seen for OT eval following a right LF crush injury on September 11, 2018. Due to complications pt underwent right LF amputation distal PIP of right LF. pt employed at [employer] and has worked there about a month. Pt states he is returning to work with no restrictions today. - ROM MP: Right IF 100 left 100 PIP: right IF 45 left 100 DIP: right IF NT left 80 ROM Comments: pt demo decreass in ROM of right LF PIP limiting his composite fist. - Strength Provisioning Specialist: right 60# left 90# Lateral Pinch: right 16# left 18# Tripod Pinch: right 18# left 18# Strength Comments: pt demo with a decrease in right proprietary trader strength - Edema Other: right LF tip amputation 5.5 left PIP 4.5 - Sensation Sensation Comments: denies - Quick DASH-Disab of Arm,Shoulder& Hand Quick DASH Score: 14.2850 - Goals Goal:: pt will demo a increase in right proprietary trader strength by 20# or greater to return pt to PLOF with ADLS and IADLS by D/C Goal:: pt will demo the ability to form composite fist to hold 10 coins by d/c - Rehabilitation General Assessment: Pt demo with limited composite fist of right hand with right proprietary trader weakness. This limits pts ind.with ADLS and IADLS. PT would benefit from skilled OT services 3x week for 4 weeks. therapist will challeng pts ROM and strength to return pt to PLOF. Today pt was ed on ROM, blocking and PRE. pt demo understanding and argree to POC. Rehabilitation Potential: Good - Anticipated Interventions Anticipated Interventions: A/AAROM/PROM, Strengthening, Edema Control - Visit Plan Frequency: 3x /Week Duration: 4 Weeks TEXT: Thank you for the opportunity to evaluate your patient. For Medicare and Medicare HMO plans, please review the plan of care and approve it. It will need to be FAXED BACK to us at [phone] for Medicare purposes. Please let me know if there are questions or concerns regarding this plan of care. Physician Signature: Date:
--- NOTE | 2019-04-12 11:14 | HP.OTDCSUM ---
HP - OT D/C Summary It has been my pleasure to treat DIANA NEWSOME under orders from Layo Barnett MD, for the diagnosis of right LF crush injury with right LF tip amputation for a total of 8 visit(s). Please see the following information for a summary of their discharge status. - Overall Improvement % Improvement: 90 - Objective Objective/Function: pt right clinical registered nurse strength 75# left clinical registered nurse strength 85#- pt demo a increase from 60# of right clinical registered nurse strength - - Goals Patient Goals: Regain Mobility, Regain Strength, Return to Work, Decrease Swelling/Stiffness, Use Hand/Wrist/Arm Normally Again Goal:: pt will demo a increase in right clinical registered nurse strength by 20# or greater to return pt to PLOF with ADLS and IADLS by D/C Goal:: pt will demo the ability to form composite fist to hold 10 coins by d/c - Plan Plan: D/C pt - D/C Information If there are questions or concerns regarding this patient's occupational therapy, please fell free to call me at [phone]. Thank you for the referral of this patient. Sincerely, Keiry Chaudhry, OTR/L, CHT
== END 2018-12-13 19:00 | disposition home or self-care (01) ==
LOC: OT 10:30
PROVIDERS: Visit Provider Surgery
DX: S62.636D Displaced fracture of distal phalanx of right little finger, subsequent encounter for fracture with routine healing (principal); S60.15 Contusion of little finger with damage to nail; S69.91XD Unspecified injury of right wrist, hand and finger(s), subsequent encounter; S67.196D Crushing injury of right little finger, subsequent encounter; A49.8 Other bacterial infections of unspecified site; M86.141 Other acute osteomyelitis, right hand; Z89.021 Acquired absence of right finger(s); F17.200 Nicotine dependence, unspecified, uncomplicated
CPT/HCPCS: 97110; 97166; 97530